=== PATIENT | female | born 2000 | race Caucasian/White ===

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

== ENCOUNTER 2023-11-17 00:34 | Inpatient (IN) ==
[2023-11-17 01:39] LABS: ABS Basophils 0.1 10^3/uL (0.0-0.1); ABS Lymphocytes 1.7 10^3/uL (1.0-4.8); ABS Monocytes 0.6 10^3/uL (0.0-0.9); ABS Neutrophils 5.3 10^3/uL (1.5-7.6); ABS Nucleated RBC 0.01 10^3/ul; Eosinophil % 0.5 %; Hematocrit 45.9 % (35-45); Hemoglobin 15.6 g/dL (11.5-14.3); Lymphocyte % 22.1 %; Mean Corpuscular Hemoglobin 32.1 pg (27-33); Mean Corpuscular Hgb Conc 34.1 g/dL (31-36); Mean Corpuscular Volume 94.2 fL (80-97); Mean Platelet Volume 9.5 fL (7.5-11.2); Nucleated Red Blood Cells % 0.1 %/100WBC (0.0-0.8); Platelet Count 163 10^3/uL (150-450); Red Blood Count 4.88 10^6/uL (3.63-4.92); Red Cell Distribution Width 13.8 % (12-17); White Blood Count 7.7 10^3/uL (3.8-11.8)
[2023-11-17 01:55] LABS: Urine Appearance Clear; Urine Bilirubin Negative (Negative); Urine Blood Negative (Negative); Urine Color Colorless; Urine Glucose Negative (Negative); Urine Ketones 2+ (Negative); Urine Nitrite Negative (Negative); Urine Protein Negative (Negative); Urine Specific Gravity 1.009 (1.002-1.030); Urine Urobilinogen Negative (Negative)
[2023-11-17 02:21] LABS: Urine Benzodiazepine Screen None Detected (None Detect); Urine Cannabinoids Screen None Detected (None Detect); Urine Opiates Screen None Detected (None Detect)
[2023-11-17 02:41] LABS: TSH Ultra Thyroid Stim Horm 2.42 mcIU/mL (0.34-5.60)
[2023-11-17 02:43] LABS: AST 34 U/L (13-39); Potassium 3.7 mmol/L (3.5-5.0)
[2023-11-17 02:44] LABS: ALT 17 U/L (7-52); Acetaminophen < 15 mcg/mL; Albumin 4.6 g/dL (3.2-5.2); Albumin/Globulin Ratio 2.2 (1-3); Alcohol, S 18 mg/dL (<13); Alkaline Phosphatase 55 U/L (35-149); Anion Gap 14 mmol/L (2-16); Blood Urea Nitrogen 10 mg/dL (6-24); CO2 Carbon Dioxide 21 mmol/L (22-32); Calcium 9.7 mg/dL (8.6-10.3); Chloride 103 mmol/L (101-111); Creatinine, Serum 0.88 mg/dL (0.51-0.95); Globulin 2.1 g/dL (2-4); Glucose 77 mg/dL (70-100); Salicylate < 2.50 mg/dL (<30); Sodium 138 mmol/L (135-145); Total Bilirubin 0.9 mg/dL (0.2-1.0); Total Protein 6.7 g/dL (6.4-8.9); eGFR CKD-EPI 96.4 (>60)
[2023-11-17 03:01] LABS: HCG Pregnancy < 0.60 mIU/mL
[2023-11-17] MEDS ORDERED: Al Hydrox/Mg Hydrox/Simet LIQ 30 ML UDC PO PRN (03:24)
[2023-11-17] MEDS ORDERED: Nicotine GUM 2MG FRUIT FLAVOR PO PRN (04:00)
[2023-11-17] MEDS ORDERED: Testosterone Cypionate (NF) 200 MG/ML VIAL IM SCH (15:00)
[2023-11-17] MEDS: Testosterone Cypionate (NF) 200 MG/ML VIAL IM SCH (15:02)
[2023-11-17] MEDS: Nicotine PATCH 21 MG/24 HR PATCH TRANSDERM SCH (19:16)
[2023-11-17] MEDS: Vitamin THERAPEUTIC TAB PO SCH (19:16)
[2023-11-18] MEDS ORDERED: Testosterone Cypionate (NF) 200 MG/ML VIAL IM SCH ×2 (10:00)
[2023-11-18] MEDS: Testosterone Cypionate (NF) 200 MG/ML VIAL IM SCH (10:59)
[2023-11-18] MEDS ORDERED: Testosterone Cypionate (NF) 200 MG/ML VIAL IM ONE (11:00)
[2023-11-23 11:59] VITALS: BP 123/85
== END 2023-11-23 12:50 | disposition home or self-care (01) | DRG 751 ==
LOC: ED 00:34 → EDHOLD 03:02 → BSU 03:40
PROVIDERS: ADMIT Psychiatry & Neurology Psychiatry; ATTEND Psychiatry & Neurology Psychiatry